=== PATIENT | male | born 1930 | race Caucasian/White ===

== ENCOUNTER → 2016-11-03 | Day surgery (SDC) | payer MEDICARE ==
[~2016-11-03] MED LIST: ALLO300T2 PO; AMLO2.5T OR; ASPI325T PO; ATOR20TA42 PO; GLIP5TAB8 OR; LIDOCAINE 1%/EPINEPHrine 1:200,000 PF SOLN 30 ML VIAL ONE; LOSA25TA31 PO; METO50TA OR; MINERAL OIL 10 ML VIAL ONE; PROPOFOL 200 MG/20 ML AMP IV ONE; PROPOFOL 500 MG/50 ML BTL IV ONE; SODIUM BICARBONATE 8.4% INJ 50 ML ONE; ceFAZolin 2 GM PREMIX 50 ML ONE
--- NOTE | 2016-11-03 08:54 | MP ---
cc: EM BAILON M.D. 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 OPERATION Excision 5 x 4 cm melanoma in situ right ear with reconstruction with full-thickness skin graft from the right abdomen. SURGEON Dr. Bailon ANESTHESIA General. 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 A 1 cm margin was taken. The patient was advised reconstruction with a skin graft. He does not have enough donor site in the right neck. The plan was to get a graft from the left thigh, however, during the pre-op it was noted that he has a fair amount of skin laxity in the lower abdomen and a previously existing appendix and a hernia scar, and the graft was harvested from this site instead. The patient understands that the graft can possibly fail completely or partly and further reconstruction may be needed. PROCEDURE The patient was brought to the operating room, was given a supine position. Anesthesia was started. Prep and drape was done. IV antibiotic had been given. Local anesthetic, lidocaine 1% with epinephrine, was injected just prior to the prep to allow the epinephrine to act. A timeout was called and completed. The lesion was removed in the subcutaneous plane. Overall it measured 5 x 4 cm. Hemostasis was completed with light Bovie current. A partial-thickness dermis and epidermis graft was harvested from the right lower abdomen. The donor site was closed with inverting 4-0 Vicryl sutures. The graft was secured with 5-0 Vicryl interrupted sutures and then it was folded along the helix rim to try and reconstruct it as best as possible. The graft was secured with a bolster dressing using [id number] Prolene sutures as well. The patient remained stable. Intraoperative blood loss was less than 5 cc. No complications. signed, not fully reviewed MD ALEX Delaney/LILIAN /8:39 AM /8:47 AM [facility]ENTERLatisha
== END | disposition home or self-care (01) ==
LOC: ESDC 06:39
PROVIDERS: ATTEND Plastic Surgery
DX: D03.21 Melanoma in situ of right ear and external auricular canal (principal)
CPT/HCPCS: 00300; 11646; 15260; 88305; J0690; J3010